=== PATIENT | male | born 1975 | race Caucasian/White ===

== ENCOUNTER → 2024-01-09 06:27 | Day surgery (SDC) | payer OTHER, SELFPAY | LOC: GI 06:27 | PROVIDERS: ATTENDING PHYSICIAN Internal Medicine | DX: D12.3 Benign neoplasm of transverse colon (principal); D12.5 Benign neoplasm of sigmoid colon; K63.89 Other specified diseases of intestine; K57.30 Diverticulosis of large intestine without perforation or abscess without bleeding; K64.8 Other hemorrhoids; R93.3 Abnormal findings on diagnostic imaging of other parts of digestive tract | CPT/HCPCS: 45380; 88305 ==

== ENCOUNTER 2024-01-10 16:37 | Emergency (ER) | payer OTHER, SELFPAY ==
[2024-01-10 16:54] VITALS: BP 131/86
[2024-01-10 17:14] LABS: COVID-19 Antigen Positive (Negative)
[2024-01-10 18:18] VITALS: BMI 27.4
[2024-01-10 18:19] VITALS: BP 130/84
--- NOTE | 2024-01-10 18:23 | ED.GENMED ---
History of Present Illness
General
Chief Complaint: Fever
Source: patient
Time Seen by Provider: 01/10/24 18:03
Travel History
Have you had any contact with someone who has COVID-19?: No
Do you have any symptoms of coronavirus? Fever > 100 degrees, chills, cough, shortness of breath, sore throat, loss of taste or smell, muscle aches, or headache?: Yes
Symptoms:: see note
History of Present Illness
History of Present Illness:
48-year-old male presenting to the emergency department for evaluation of cough and fever that he states started yesterday, had a colonoscopy yesterday and due to the fever decided to come to the ER for further evaluation. Patient notes no GI
symptoms today although notes he has not had a bowel movement since the colonoscopy. He states the cough is nonproductive. He notes that he had the colonoscopy due to chronic GI symptoms. No clear etiology at this time. Patient did not take
anything for symptoms prior to arrival.
Past History
Past History
ED Past Medical History: Cancer (Skin cancer) and Other (BPH, kidney stones)
ED Past Surgical History: Appendectomy and Other (Laser lithotripsy)
Social History
Tobacco: Non-smoker
Alcohol: Daily (Has not had a drink in 1 month but does note drinking 1-2 alcoholic beverages daily)
Drug: None
Personal:
Living: with family
Review of Systems
Review of Systems
All Other Systems: ROS reviewed and negative except as documented in HPI and ROS
Phy Exam
Physical Exam
Physical Exam:
GENERAL: Alert , in no apparent distress
EYE: conjunctiva clear
NECK: Supple, no significant adenopathy.
ENT: o/p clr, mmm.
CARDIAC: Regular rate and rhythm
LUNGS: Clear breath sounds bilaterally, no acute respiratory distress, no wheezes/rales/rhonchi
Abdomen: Soft, nontender, nondistended
NEUROLOGICAL: Alert and oriented
SKIN: Warm and dry, skin intact.
MUSCULOSKELETAL: well perfused.
PSYCH: Normal and appropriate interaction.
Scores
Heart Failure Risk
Heart Failure Risk Score: Not Applicable
Heart Score for Chest Pain Patients
STEMI patient?: Not applicable
Withdrawal Assessment of Alcohol
Withdrawal Assessment Completed?: Not applicable
Course
Orders/Labs/Results
Orders:
Orders
01/10/24 17:04
COVID-19 Antigen Urgent
Source: Nasal Swab
Influenza A+B Rapid Molecular Urgent
ELFEGO Source: Nasal Swab
Specimen Description:
Abnormal Lab Results
01/10/24
17:04
SARS-CoV-2 Antigen Positive A
(Negative)
Vital Signs
Initial and Last Documented VS:
Initial Vital Signs
Temp Pulse Resp BP Pulse Ox
100.5 F H 104 20 131/86 95
01/10/24 16:54 01/10/24 16:54 01/10/24 16:54 01/10/24 16:54 01/10/24 16:54
Last Documented Vital Signs
Temp Pulse Resp BP Pulse Ox
100.5 F H 89 16 130/84 96
01/10/24 16:54 01/10/24 18:19 01/10/24 18:19 01/10/24 18:19 01/10/24 18:19
MDM/Problems Addressed
Differential Diagnosis Includes:
COVID, flu, other viral etiology, postprocedural complication
MDM/Problems Addressed:
48-year-old male present emergency department for evaluation of fever and cough that began yesterday, continued today, had colonoscopy yesterday. Abdomen is soft and reassuring so I am not as suspicious for a postprocedural complication. COVID and
flu testing was ordered in triage and COVID test was positive. I discussed risk versus benefit of oral antiviral medications with the patient and patient ultimately was not sure if he would take the medication but wanted the prescription just in
case. Advised the patient he would need to discontinue his Flomax if he decides to take the Paxlovid. He also would need to take this medication by Saturday given his symptoms started on . Patient aware of return precautions emergency
department. He is otherwise stable for discharge home.
Patient's colonoscopy findings from yesterday as below:
Findings:
�� � The perianal and digital rectal examinations were normal.
�� � Non-bleeding internal hemorrhoids were found during retroflexion. The
�� � hemorrhoids were medium-sized.
�� � Scattered small-mouthed diverticula were found in the sigmoid colon.
�� � Two semi-sessile polyps were found in the sigmoid colon and transverse
�� � colon. The polyps were small in size. These polyps were removed with a
�� � jumbo cold forceps. Resection and retrieval were complete. Estimated
�� � blood loss was minimal.
�� � A diffuse area of granular mucosa was found in the entire colon.
�� � Biopsies for histology were taken with a cold forceps from the entire
�� � colon for evaluation of microscopic colitis. Estimated blood loss was
�� � minimal.
�� � The exam was otherwise normal throughout the examined colon.
�� � The terminal ileum appeared normal.
*Pulse Oximetry
Patient hypoxic: no
*Critical Care Note
Total Time (30-74mins, 75-104mins- exclusive of procedures): Not Applicable
Data Reviewed
Review of Other/Old Records Reveals: Testing
Source: patient and records
ED Attending Note
-
Portions of this chart may have been created with voice recognition software.� Occasional wrong word or��sound alike� substitutions may have occurred due to the inherent limitations of voice recognition software.
Discharge Plan
Departure
Patient Disposition: Home (Routine Discharge)
Date of Disposition: 01/10/24
Time of Disposition: 18:23
Patient with high blood pressure during this ER visit?: No
Discharge Problem:
COVID-19
Instructions: COVID-19 (DC)
Prescriptions:
New
Paxlovid 300 mg (150 mg x 2)-100 mg tablets,dose pack
See Rx Instructions .ROUTE .COMPLEX Qty: 30 0RF
Rx Instructions:
take TWO 150 mg tablets of nirmatrelvir with ONE 100 mg tablet of ritonavir twice daily for 5 days
No Action
tamsulosin 0.4 MG capsule
0.4 mg PO DAILY
escitalopram oxalate 5 MG tablet
5 mg PO DAILY
cholecalciferol (vitamin D3) 2,000 UNIT tablet
5,000 unit PO DAILY
Solisencin
10 mg PO DAILY
tramadol [Ultram] 50 MG tablet
50 mg PO Q8 PRN (Reason: pain) Qty: 30 0RF
Activity Restrictions/Additional Instructions:
If you decide to take the Paxlovid make sure you discontinue your use of Flomax for the duration of time taking the Paxlovid. You also must initiate the Paxlovid by Saturday if you decide to start the medication.
Interventions
Interventions:
*Risk Screen - Suicide Last Done: 01/10/24 18:19
*General Assessment Last Done: 01/10/24 18:19
*Neglect/Abuse Screening Last Done: 01/10/24 18:19
ED- Fall Risk Assessment Last Done: 01/10/24 18:19
*ED COVID-19 Vaccine History Last Done: 01/10/24 18:19
ED- Neurological Assessment Last Done: 01/10/24 18:19
ED-Skin Assessment Last Done: 01/10/24 18:19
== END 2024-01-10 18:36 | disposition home or self-care (01) ==
LOC: EMR 16:37
PROVIDERS: Emergency Medicine; EMERGENCY PHYSICIAN Emergency Medicine; FAMILY PHYSICIAN Internal Medicine
DX: U07.1 COVID-19 (principal); Z11.52 Encounter for screening for COVID-19; N40.0 Benign prostatic hyperplasia without lower urinary tract symptoms; K57.30 Diverticulosis of large intestine without perforation or abscess without bleeding; K64.8 Other hemorrhoids; Z98.890 Other specified postprocedural states; Z85.828 Personal history of other malignant neoplasm of skin; Z86.010 Personal history of colon polyps; Z87.442 Personal history of urinary calculi
CPT/HCPCS: 99283; 87502; 87811

== ENCOUNTER → 2024-07-07 09:03 | Outpatient (REF) | payer OTHER, SELFPAY | LOC: MRI 3T 09:03 | PROVIDERS: ATTENDING PHYSICIAN Internal Medicine | DX: R93.89 Abnormal findings on diagnostic imaging of other specified body structures (principal) | CPT/HCPCS: 72197; 74183; A9575 ==

== ENCOUNTER → 2024-08-05 09:09 | Outpatient (REF) | payer OTHER, SELFPAY | LOC: HWRAD 09:09 | PROVIDERS: ATTENDING PHYSICIAN Internal Medicine; FAMILY PHYSICIAN Internal Medicine | DX: T18.9XXA Foreign body of alimentary tract, part unspecified, initial encounter (principal) | CPT/HCPCS: 74019 ==

== ENCOUNTER 2024-10-15 12:52 | Observation (INO) | payer OTHER, SELFPAY ==
[2024-10-15] VITALS (14 sets, daily range): BP systolic 73–141; BP diastolic 65–88; BMI 27.1; BMI 26.9
--- NOTE | 2024-10-15 09:32 | ED.GENMED ---
History of Present Illness
<Marychuy Zhang PA-C - Last Filed: 10/15/24 18:36>
General
Chief Complaint: Numbness
Source: patient
Exam Limitations: none
Time Seen by Provider: 10/15/24 09:14
Nursing documentation reviewed up to this point in time: agreed with
History of Present Illness
History of Present Illness:
49-year-old male presents emergency department today with generalized neuropathy for the past 2 weeks. He states that he first started noticing that his legs felt fatigued and heavier. Then he started to get numbness and tingling in his bilateral
lower extremities. This sensation is gotten more intense over the past 2 weeks and will be associated occasionally with burning pain and now is present in the thighs as well. Patient states that this morning when he woke up, he noticed he felt a
similar sensation in both his lower extremities. Patient denies any difficulty ambulating. Patient denies any fevers or chills. Patient states he has low back pain on and off but has none currently, denies any trauma to the area, denies any
saddle paresthesias or urinary or fecal incontinence. Of note, he did get his flu shot in September. He saw his primary care provider a week ago for the symptoms and lab work was done including Lyme titers and vitamin B12. This was normal. He has
a neurology appointment scheduled but this is not until December 14 of next year.
Past History
<Marychuy Zhang PA-C - Last Filed: 10/15/24 18:36>
Past History
ED Past Medical History: Cancer (Skin cancer) and Other (BPH, kidney stones)
ED Past Surgical History: Appendectomy and Other (Laser lithotripsy)
Social History
Tobacco: Non-smoker
Alcohol: Daily (Has not had a drink in 1 month but does note drinking 1-2 alcoholic beverages daily)
Drug: None
Personal:
Living: with family
Review of Systems
<Marychuy Zhang PA-C - Last Filed: 10/15/24 18:36>
Review of Systems
All Other Systems: ROS reviewed and negative except as documented in HPI and ROS
Phy Exam
<Marychuy Zhang PA-C - Last Filed: 10/15/24 18:36>
Physical Exam
Physical Exam:
General: Patient is well appearing and in no acute distress; non-toxic
Skin: Warm and dry, no rashes or lesions
Head: Normocephalic, atraumatic
Eyes: Sclera non-icteric. EOMs intact. PERRLA.
Cardiac: Regular rate and rhythm, no murmurs
Peripheral Vascular: No lower extremity swelling or edema
Pulm: Normal respiratory effort, no wheezes, rales, rhonchi. Airway intact.
Musculoskeletal: No bony tenderness to palpation of bilateral lower extremities. Full ROM of bilateral lower extremities. Normal gait.
Neuro: CN II-XII intact, no focal neurologic deficits. Brisk DTR bilateral lower extremities.
Psychiatric: Appropriate mood and affect.
Course
<Marychuy Zhang PA-C - Last Filed: 10/15/24 18:36>
Orders/Labs/Results
Orders:
Orders
10/15/24 Breakfast
Regular
At Your Request: Full Participation
10/15/24 10:59
CRP [C-Reactive Protein] Urgent
Complete Blood Count/With Diff Urgent
Comprehensive Metabolic Panel Urgent
ESR [Erythrocyte Sed Rate] Urgent
Folate Urgent
Magnesium Urgent
TSH Reflex To Free T4 Urgent
Vitamin B12 Urgent
10/15/24 12:24
Admit/Transfer Patient As Directed
Co-Sign Provider:
Level of Care: Observation services
Assign to:: Medical/Surgical
Physician / Group: mary
Diagnosis: neuropathy
Code Status As Directed
Resuscitation Status: Full Code
PRN Pain Medication Management As Directed
May give lesser potent ordered pain med per pt: Yes
preference::
Protocol:: Medication orders for pain may be administered in a
manner that supports deferring to patient preference
when the pt is:
- Requesting an ordered lesser potent pain medication.
Least to most potent pain medications are defined
as: acetaminophen < NSAID < tramadol < opioids
(morphine, oxycodone, hydromorphone).
- Requesting a lesser dose of the same medication IF
ORDERED.
- Requesting a less intrusive route of administration
if both routes are prescribed by the provider (PO <
IV).
10/15/24 12:37
MR Cervical Spine Without & W Routine
Comment:
Reason For Exam: numbness and tingling
Recent pill cam endoscopy?: No
MRI Brain [MR Brain W/o & With Contrast] Routine
Comment:
Reason For Exam: numbness/tingling
Recent pill cam endoscopy?: No
10/15/24 13:58
Acetaminophen [Tylenol] 650 mg PO Q4HPRN PRN
Bisacodyl [Dulcolax] 10 mg RECTAL [id number] PRN
Docusate W/Senna [Senokot-S] 1 tablet PO BIDPRN PRN
Polyethylene Glycol Powder [Miralax] 17 grams PO DAILYPRN PRN
10/15/24 13:58
NEUROLOGY CONSULT Routine
Consulting Provider: Israel Rodrigez
Was physician already notified: Yes
Activity As Directed
Activity Level: As Tolerated
Vital Signs As Directed
Frequency: Per unit guidelines
DX Deep Vein Thrombosis Video Routine
10/15/24 18:00
Enoxaparin Sodium [Lovenox] 40 mg SC QPM
10/15/24 22:00
Diphenhydramine [Benadryl] 25 mg PO HS
Melatonin 10 mg PO HS
Tolterodine Extended Release [Detrol LA] 4 mg PO HS
Abnormal Lab Results
10/15/24
10:59
MCH 33.0 H pg
(27.0-31.0)
Monocytes % 9.9 H %
(1.7-9.3)
BUN 24 H mg/dl
(9-20)
Glucose 102 H mg/dl
(70-99)
10/15/24 10:59
10/15/24 10:59
Vital Signs
Initial and Last Documented VS:
Initial Vital Signs
Temp Pulse Resp BP Pulse Ox
98.7 F 79 16 141/88 98
10/15/24 08:50 10/15/24 08:50 10/15/24 08:50 10/15/24 08:50 10/15/24 08:50
Last Documented Vital Signs
Temp Pulse Resp BP Pulse Ox
98.2 F 70 18 129/76 96
10/15/24 17:47 10/15/24 17:47 10/15/24 17:47 10/15/24 17:47 10/15/24 17:47
<Mitchell Thomas MD - Last Filed: 10/15/24 18:34>
Orders/Labs/Results
Orders:
Orders
10/15/24 Breakfast
Regular
At Your Request: Full Participation
10/15/24 10:59
CRP [C-Reactive Protein] Urgent
Complete Blood Count/With Diff Urgent
Comprehensive Metabolic Panel Urgent
ESR [Erythrocyte Sed Rate] Urgent
Folate Urgent
Magnesium Urgent
TSH Reflex To Free T4 Urgent
Vitamin B12 Urgent
10/15/24 12:24
Admit/Transfer Patient As Directed
Co-Sign Provider:
Level of Care: Observation services
Assign to:: Medical/Surgical
Physician / Group: veldanda
Diagnosis: neuropathy
Code Status As Directed
Resuscitation Status: Full Code
PRN Pain Medication Management As Directed
May give lesser potent ordered pain med per pt: Yes
preference::
Protocol:: Medication orders for pain may be administered in a
manner that supports deferring to patient preference
when the pt is:
- Requesting an ordered lesser potent pain medication.
Least to most potent pain medications are defined
as: acetaminophen < NSAID < tramadol < opioids
(morphine, oxycodone, hydromorphone).
- Requesting a lesser dose of the same medication IF
ORDERED.
- Requesting a less intrusive route of administration
if both routes are prescribed by the provider (PO <
IV).
10/15/24 12:37
MR Cervical Spine Without & W Routine
Comment:
Reason For Exam: numbness and tingling
Recent pill cam endoscopy?: No
MRI Brain [MR Brain W/o & With Contrast] Routine
Comment:
Reason For Exam: numbness/tingling
Recent pill cam endoscopy?: No
10/15/24 13:58
Acetaminophen [Tylenol] 650 mg PO Q4HPRN PRN
Bisacodyl [Dulcolax] 10 mg RECTAL [id number] PRN
Docusate W/Senna [Senokot-S] 1 tablet PO BIDPRN PRN
Polyethylene Glycol Powder [Miralax] 17 grams PO DAILYPRN PRN
10/15/24 13:58
NEUROLOGY CONSULT Routine
Consulting Provider: Israel Rodrigez
Was physician already notified: Yes
Activity As Directed
Activity Level: As Tolerated
Vital Signs As Directed
Frequency: Per unit guidelines
DX Deep Vein Thrombosis Video Routine
10/15/24 18:00
Enoxaparin Sodium [Lovenox] 40 mg SC QPM
10/15/24 22:00
Diphenhydramine [Benadryl] 25 mg PO HS
Melatonin 10 mg PO HS
Tolterodine Extended Release [Detrol LA] 4 mg PO HS
Abnormal Lab Results
10/15/24
10:59
MCH 33.0 H pg
(27.0-31.0)
Monocytes % 9.9 H %
(1.7-9.3)
BUN 24 H mg/dl
(9-20)
Glucose 102 H mg/dl
(70-99)
10/15/24 10:59
10/15/24 10:59
Vital Signs
Initial and Last Documented VS:
Initial Vital Signs
Temp Pulse Resp BP Pulse Ox
98.7 F 79 16 141/88 98
10/15/24 08:50 10/15/24 08:50 10/15/24 08:50 10/15/24 08:50 10/15/24 08:50
Last Documented Vital Signs
Temp Pulse Resp BP Pulse Ox
98.2 F 70 18 129/76 96
10/15/24 17:47 10/15/24 17:47 10/15/24 17:47 10/15/24 17:47 10/15/24 17:47
<Marychuy Zhang PA-C - Last Filed: 10/15/24 18:36>
MDM/Problems Addressed
Differential Diagnosis Includes:
ddx include diabetic neuropathy, B12 deficiency, folate deficiency, tick borne illness, cauda equina syndrome
MDM/Problems Addressed:
49-year-old male presents emergency department today with generalized neuropathy for the past 2 weeks. It started in his legs but today progressed to his bilateral upper extremities and an episode of dysphagia. He gets intermittent low back pain.
Discussed case in consult with neurology, admission recommended for further workup of symptoms, transverse myelitis vs GBS vs MS. Patient in agreement with plan all questions answered.
<Marychuy Zhang PA-C - Last Filed: 10/15/24 18:36>
*Pulse Oximetry
Patient hypoxic: no
*Critical Care Note
Total Time (30-74mins, 75-104mins- exclusive of procedures): Not Applicable
Data Reviewed
Review of Other/Old Records Reveals: Records (reviewed ER physician documentation from 01/10/24)
Source: patient and records
<Marychuy Zhang PA-C - Last Filed: 10/15/24 18:36>
Patient Management
Discussion with other providers: Adult Education Teacher (Dr. Rodrigez)
ED Attending Note
<Marychuy Zhang PA-C - Last Filed: 10/15/24 18:36>
-
Portions of this chart may have been created with voice recognition software.� Occasional wrong word or��sound alike� substitutions may have occurred due to the inherent limitations of voice recognition software.
<Mitchell Thomas MD - Last Filed: 10/15/24 18:34>
ED Attending Note
I performed the substantive portion of visit, reviewed & personally made and approve the management plan that is documented in note by myself or JB.: Yes
ED Attending Note:
Patient presents to ED secondary to intermittent numbness sensation in his legs over the past 2 weeks, which now has progressed to upper arm numbness sensation along with difficulty swallowing, noted at this morning. Denies headache. Denies
dizziness. Denies weakness. Denies back pain. Denies recent illness. Denies recent change in medications or diet. Denies previous history of similar symptoms. Patient has been evaluated by his primary care physician and appointment has been
made for an outpatient consultation with neurology in December 2024.
Patient evaluated in ED by Dr. Rodrigez, neurology. History and exam concerning for potential diagnosis, including transverse myelitis, Guillain-Lorenzo� syndrome, and other etiology. As such, decision made to admit the patient for further evaluation
and treatment, including MRI brain and MRI C-spine, along with likely lumbar puncture.
Discharge Plan
Departure
Patient Disposition: Admit
Date of Disposition: 10/15/24
Time of Disposition: 12:01
Admit to: Med/Surg
Presentation/result/management discussed w/ accepting MD/DO: Hospitalist
Patient with high blood pressure during this ER visit?: Yes
Condition: Fair
Discharge Problem:
Peripheral neuropathy, Dysphagia
Interventions
Interventions:
*Risk Screen - Suicide Last Done: 10/15/24 08:50
*General Assessment Last Done: 10/15/24 11:03
*Neglect/Abuse Screening Last Done: 10/15/24 08:50
ED- Fall Risk Assessment Last Done: 10/15/24 11:04
*ED COVID-19 Vaccine History Last Done: 10/15/24 11:02
*Nursing Disposition Last Done: 10/15/24 13:56
ED- Neurological Assessment Last Done: 10/15/24 10:02
Discharge Date and Time
Discharge Date/Time: 10/15/24 13:56
--- NOTE | 2024-10-15 11:03 | CON.NEURO4 ---
Addendum entered and electronically signed by Israel Rodrigez MD 10/15/24 15:59:
Studies reviewed.
I have personally examined the patient. I reviewed and agree with the WHITE WASHER's Note.
My addenda:
Awake, alert, interactive. No acute distress.
Speech intact.
Follows 2-step requests w/o difficulty. No tremor.
Extra-ocular movements grossly intact.
Facial movements full and symmetric. Hearing intact to normal conversational volume.
Normal UE movements bilaterally.
Neck: full ROM.
Chest: no dyspnea
Heart: no JVD
Ext: (-) Clubbing, (-) Cyanosis, (-) Edema
IMPRESSIONS/RECOMMENDATIONS:
Abrupt onset of bilateral lower extremity skin sensation change subsequently involving bilateral upper extremities (left, then right), followed by dysphagia beginning today
Differential diagnosis including the patient's spared reflexes, involves transverse myelitis or Guillain-Lorenzo� syndrome (axonal type)
Check MRI of head and cervical spine with and without contrast
Check EMG
Check lumbar puncture for cytoalbumin disassociation and for inflammatory changes
Consider initiation of methylprednisolone 1 g IV based on future results
Speech therapy evaluation for swallowing difficulties
D/W patient / family
All questions answered.
Will continue to follow patient.
Original Note:
Consultation - Neurology 4
-
CONSULTING PHYSICIAN: Israel Rodrigez MD
REFERRING PHYSICIAN: ER/Marychuy Zhang PA-C
DICTATED BY: DANGELO Mcdonnell
DATE/TIME OF REQUEST: 10/15/24
DATE/TIME OF CONSULTATION: 10/15/24
Reason for Consultation: Paresthesias
History of Present Illness:
This is a 49-year-old right-handed male who has presented to the hospital with report of paresthesias, weakness, and swallowing difficulty. Patient reports receiving a flu vaccine about 3 weeks ago. About two weeks ago, he reports noticing that his
legs felt 'heavy' and he began to have intermittent tingling, burning, cramping from his waist down his posterior thighs, to bilateral ankles. Two days ago, his left arm started having a tingling sensation and then today (10/15/24), his right arm
started tingling. This morning, he note that swallowing felt difficult with breakfast. He denies any arm weakness but does note bilateral leg weakness, no difficulty walking or falls. He reports mild lower back pain at the base of his spine. He also
has a mild headache starting this morning. He notes very poor sleep for the past three years, which has improved somewhat since his septoplasty that he had done for sleep apnea. He denies migraine headaches but would have headaches from time to time
associated with poor sleep. He denies any vision changes, dizziness, speech difficulty, bowel/bladder changes, chest pain, palpitations, and shortness of breath. He has been undergoing a GI workup for IBS symptoms and as told he had an area of
inflammation in his small bowel. He is also taking Gemtesa for urinary difficulty. He was evaluated at his PCP about a week ago and had negative Lyme and B12 testing.
Past Medical History: IBS, MIKIE, renal calculi, neuropathy, skin cancer, BPH
Surgical History: lithotripsy w/ stent, septoplasty, appendectomy
Family History: Reviewed and noncontributory.
Social History: Denies tobacco and illicit drug use. Alcohol 1-2 drinks daily, has not had a drink in about a month.
Allergies: No known allergies.
Home Medications: See below.
Review of Symptoms:
Patient denies any fever, chest pain, shortness of breath, GI or symptoms.
�Per the HPI.�All systems are reviewed negative except above.
Physical Exam:
The patient is afebrile, abdomen is nondistended, breathing is unlabored, skin is warm and dry, no edema.
Neurologic Examination:
The patient is awake, alert and oriented x 3. He is able to follow commands and answer questions appropriately. There is no aphasia or dysarthria. On cranial nerve assessment, pupils are 3 mm bilateral, round and reactive to light and
accommodation. Visual weber are full. Extraocular movements are intact. Facial sensations are intact and bilaterally symmetrical, there is no facial asymmetry. Hearing is intact bilaterally to normal conversation volume. Tongue palate and uvula are
midline. Sternocleidomastoid strengths are full bilaterally. Motor strengths are 5/5 bilateral upper and lower extremities on medical research [place] scale. There is no drift or involuntary movement noted. Deep tendon reflexes are 2+ bilateral
upper and lower extremities, one beat of clonus in the LLE and Babinski is absent bilaterally. Sensations of temperature is mildly reduced in bilateral lower extremities. Sensation of pain is severely reduced in bilateral feet, mildly decreased in
distal bilateral lower extremities and upper extremities L>R. Intermittent proximal BLE fasciculations. There was no extinction noted on double simultaneous stimulation. Coordination is intact by finger to nose bilaterally.
Lab Results: See below.
Neuro Imaging: None.
Differentials for the patient's presentation include:
1. Concern for spinal cord abnormality producing symptoms.
2. GBS with intact reflexes possible but uncommon.
3. Chemical imbalance possibly producing symptoms.
Patient has the following risk factors for their symptoms: Flu vaccine one month ago
Recommendations:
-MRI brain w/ and w/o contrast pending.
-MRI cervical spine w and w/o contrast pending.
-IRAD consult/lumbar puncture pending.
-If testing is inconclusive/unremarkable, will need EMG.
-PT/OT/ST evaluations.
-DVT prophylaxis.
Discussed patient care with: Dr. Rodrigez, the patient
Vital Signs and Labs
-
Vital Signs and Labs:
Vital Signs
Temp Pulse Resp BP Pulse Ox
98.7 F 74 12 119/80 96
10/15/24 08:50 10/15/24 12:30 10/15/24 12:30 10/15/24 12:00 10/15/24 12:30
Lab Results
10/15/24 10:59
10/15/24 10:59
Sodium 141 mmol/L (135-145) 10/15/24 10:59
Potassium 5.1 mmol/L (3.5-5.1) 10/15/24 10:59
BUN 24 mg/dl (9-20) H 10/15/24 10:59
Glucose 102 mg/dl (70-99) H 10/15/24 10:59
Calcium 9.7 mg/dl (8.4-10.2) 10/15/24 10:59
Vitamin B12 559 pg/ml (239-931) 10/15/24 10:59
Medications
-
Home Medications
�Medication �Instructions �Recorded
diphenhydramine HCl 25 mg tablet 25 mg PO HS Sleep 10/15/24
melatonin 10 mg tablet,extended 10 mg PO HS Sleep 10/15/24
release
vibegron 75 mg tablet (Gemtesa) 75 mg PO HS Urinary Issue 10/15/24
[2024-10-15 11:06] LABS: % Basophils 0.4 % (0-2); % Eosinophils 0.9 % (0-6); % Immature Granulocytes 0.2 % (0-0.5); % Lymphocytes 29.1 % (20.5-51.1); % Monocytes 9.9 % (1.7-9.3); % Neutrophils 59.5 % (42.2-75.2); Absolute Eosinophils 0.1 10^3/uL (0-0.7); Absolute Lymphocytes 1.6 10^3/uL (1.2-3.4); Absolute Monocytes 0.5 10^3/uL (0.1-0.6); Absolute Neutrophils 3.2 10^3/uL (1.4-6.5); Hematocrit 45.2 % (39.0-52.0); Hemoglobin 15.9 g/dL (13.0-18.0); Mean Corp Hgb Conc. 35.2 g/dL (33.0-37.0); Mean Corpuscular Volume 93.8 fL (80.0-94.0); Mean Platelet Volume 9.8 fL (7.4-10.4); Nucleated Red Blood Cells % 0 % (-); Platelet Count 196 10^3/uL (130-400); Red Blood Cell Count 4.82 10^6/uL (4.70-6.10); Red Cell Dist. Width 11.8 % (11.5-14.5); White Blood Cell Count 5.4 10^3/uL (4.8-10.8)
[2024-10-15 11:18] LABS: Erythrocyte Sed Rate 7 mm/hour (0-20)
[2024-10-15 11:27] LABS: ALT (SGPT) 32 U/L (0-50); AST (SGOT) 27 U/L (17-59); Albumin 4.7 g/dl (3.5-5.0); Alkaline Phosphatase 56 U/L (38-126); Blood Urea Nitrogen 24 mg/dl (9-20); Calcium 9.7 mg/dl (8.4-10.2); Carbon Dioxide 30 mmol/L (22-30); Chloride 103 mmol/L (98-107); Estimated Creatinine Clearance 83 ml/min; Glucose 102 mg/dl (70-99); Potassium 5.1 mmol/L (3.5-5.1); Sodium 141 mmol/L (135-145); Total Bilirubin 1.3 mg/dl (0.2-1.3); Total Protein 7.6 g/dl (6.3-8.2); eGFR > 60.00
[2024-10-15 11:30] LABS: C-Reactive Protein < 5.00 mg/L (0.0-10.00)
[2024-10-15 12:01] LABS: TSH Reflex To Free T4 1.48 uIU/ml (0.47-4.68)
--- NOTE | 2024-10-15 12:05 | HPS.HSE ---
Family Physician
-
Family Physician: Mariangel Smith MD
Chief Complaint
-
numbness
History of Present Illness
49-year-old male presents emergency department today with generalized neuropathy for the past 3 weeks. He states that he first started noticed numbness and tingling on his bilateral legs. for past few days, he noticed on his arms. today he was
having trouble swallowing. patient also complained of burning pain and cramps on his legs. Patient denies any difficulty swallowing Patient denies any fevers or chills.denied any incontinence of bowel and bladder. denied abdominal pain,n,v.
denied dysuria or hematuria. denied chest pain, sob. denied fever, chills.
admitting for further management.
Medical History
Past Medical History
Past Medical History: Reports Other
Additional Past Medical History:
colonic polyps
IBS
constipation
Past Surgical History: Reports Other
Additional Past Surgical History:
lithotripsy
septoplasty
Social History
Tobacco: Smoker (occasional )
Alcohol: Occasional
Drug: None
Personal:
Living: With Family
Employment: Employed
Family History
Family History: Not pertinent
Allergies / Home Medications
Allergies reflects when Allergies were last updated in [facility].
Home Medications with original date entered in [facility]
Allergy/Medication List:
Allergies
Allergy/AdvReac Type Severity Reaction Status Date / Time
No Known Allergies Allergy Verified 10/15/24 08:54
Home Medications
Solisencin 10 mg PO DAILY 03/19/22
cholecalciferol (vitamin D3) 50 mcg (2,000 unit) tablet 5,000 unit PO DAILY 03/19/22
escitalopram oxalate 5 mg tablet 5 mg PO DAILY 03/19/22
tamsulosin 0.4 mg capsule 0.4 mg PO DAILY 03/19/22
tramadol 50 mg tablet (Ultram) 50 mg PO Q8 PRN pain #30 tabs 03/23/22
nirmatrelvir 300 mg (150 mg x2)-ritonavir 100 mg tablet,dose pack (Paxlovid) See Rx Instructions PO .COMPLEX #30 ea 01/10/24
Review of Systems
-
Constitutional: Reports No Symptoms
EENT: Reports No Symptoms
Respiratory: Reports No Symptoms
Cardiac: Reports No Symptoms
Abdomen/GI: Reports No Symptoms
: Reports No Symptoms
Musculoskeletal: Reports No Symptoms
Skin: Reports No Symptoms
Neurological: Reports Numbness
Endocrine: Reports No Symptoms
Hematologic/Lymphatic: Reports No Symptoms
Psych: Reports No Symptoms
Physical Exam
Vital Signs
Vital Signs
Temp Pulse Resp BP Pulse Ox
98.7 F 73 20 115/80 95
10/15/24 08:50 10/15/24 11:45 10/15/24 11:45 10/15/24 11:01 10/15/24 11:45
Physical Exam
General: Well Developed, Well Nourished and No Apparent Distress
HEENT: NormoCephalic, Moist mucous membranes and Atraumatic
Respiratory: Clear
Cardiac: S1/S2 and Regular Rhythm; No Murmur or Rub
GI: Soft, Non Tender, Non Distended and Normal Bowel Sounds; No Organomegaly
Rectal: Deferred by Provider
Musculoskeletal: No Clubbing, No Cyanosis and No Edema
Skin: Rash (rash noted on his left foot)
Neuro: AO x 3 and Nonfocal/grossly intact
Psych: Calm
Laboratory Results
-
10/15/24 10:59
10/15/24 10:59
Laboratory Results
Total Bilirubin 1.3 mg/dl (0.2-1.3) 10/15/24 10:59
AST 27 U/L (17-59) 10/15/24 10:59
ALT 32 U/L (0-50) 10/15/24 10:59
Alkaline Phosphatase 56 U/L (38-126) 10/15/24 10:59
Data Reviewed
-
Lab Data: Labs Reviewed by me
Impression/Plan
-
#ascending peripheral neuropathy/trouble swallowing R/o MS VS GBS VS transverse myelitis
-obtain MRI of the brain and C spine
-neurology following
#dorsum foot rash
-obtaining HIV and syphilis
# hxt of IBS
#BPH
-Gemtesa
#insomnia
-Benadryl and melatonin for sleep
#DVT prophylaxis
-Lovenox sq
#CODE status
-full code
[2024-10-15 12:37] LABS: Folate 10.1 ng/ml (2.76-20); Vitamin B12 559 pg/ml (239-931)
--- NOTE | 2024-10-15 12:59 | W.PN.UPDATE ---
Update Note
Progress Note Update
This is an addendum to the H&P written by Chaparrita Ramachandran on 10/15/2024. Patient seen and examined independently with [facility].
49-year-old male past medical history of BPH, nephrolithiasis, skin cancer, presenting with worsening bilateral lower extremity ascending neuropathic pain with involvement of bilateral upper extremities and difficulty swallowing. Strength is
preserved bilaterally. Brisk bilateral lower extremity reflexes on examination.
On examination he also has a faint lacy maculopapular rash on the dorsum of the left foot which has improved since earlier today.
Patient has been having bouts of abdominal pain with constipation for the past year and was found to have inflammation of the small intestines on abdominal imaging. He subsequently had endoscopy/colonoscopy which was unremarkable and was told by
his GI doctor that he could have mild Crohn's disease but no further management was recommended.
No family history of neurological/autoimmune disorders.
Concern for multiple sclerosis versus transverse myelitis versus Guillain-Lorenzo�. B12 and folate pending. CRP and TSH unremarkable. Check MRI brain and cervical spine with/without contrast and potentially lumbar puncture. Neurology following.
Check HIV, syphilis antibody.
--- NOTE | 2024-10-15 14:00 | PTCARENOTE ---
Received pt from ED via wheelchair. Pt ambulated to bed independently. AAOX3. No complaints of pain. Assessed and oriented to room. Pt verbalized understanding of call degroot. Call degroot within close reach. Will continue to monitor.
[2024-10-15 16:31] LABS: INR 1.08; PT 14.5 Sec (11.4-14.6)
--- NOTE | 2024-10-15 17:47 | PTCARENOTE ---
Received pt from IR via stretcher. Stretcher placed next to bed, pt scooted over to bed independently. VSS. No complaints of pain. Back assessed, small band aide on lower middle back observed, CDI.
[2024-10-15] MEDS: LOVENOX 40 MG SC (17:50)
[2024-10-15 19:28] LABS: Spinal Fluid Glucose 64 mg/dl (40-70); Spinal Fluid Protein 58 mg/dl (12-60)
[2024-10-15 20:14] LABS: CSF Color Colorless; CSF Tube # 4; CSF Tube # Clarity Clear; Red Cell Count/CSF 1 mm^3; White Blood Cell Count/CSF 0 mm^3 (0-5)
[2024-10-15 20:29] LABS: CSF Clarity Clear; CSF Color Colorless; CSF Tube # 1; Red Cell Count/CSF 109 mm^3; White Cell Count/CSF 0 mm^3 (0-5)
[2024-10-15] MEDS: MELATONIN 10 MG PO (21:26)
[2024-10-15] MEDS: TYLENOL 650 MG PO (21:26)
[2024-10-15] MEDS: SENOKOT-S 1 TABLET PO (21:27)
[2024-10-15] MEDS: BENADRYL 25 MG PO (21:27)
[2024-10-15] MEDS: DETROL LA 4 MG PO (21:30)
[2024-10-16 03:15] VITALS: BP 107/60
[2024-10-16 07:41] VITALS: BP 104/56
--- NOTE | 2024-10-16 10:40 | W.PN.NEURO.1 ---
Today's Communication / Plan
-
Await MRI of brain and cervical spine
Check EMG study of at least 2 limbs to determine if changes suggestive of neuromuscular blockade
Continue rehabilitation evaluations
Neuro Assessment/Plan
Assessment
Abrupt onset of bilateral lower extremity skin sensation change subsequently involving bilateral upper extremities (left, then right), followed by dysphagia beginning today
Differential diagnosis based on the patient's spared reflexes, involves transverse myelitis or Guillain-Lorenzo� syndrome (axonal type).
Much less likely to be due to GBS due to lumbar puncture results unremarkable
Plan
Await MRI of brain and cervical spine
Check EMG study of at least 2 limbs to determine if changes suggestive of neuromuscular blockade
Continue rehabilitation evaluations
Will follow pending results
Subjective/Objective
Subjective Data
Date of Service: October 16, 2024
Minimal cramping, continued numbness
Objective Data
Vital Signs
Temp Pulse Resp BP Pulse Ox
36.9 C 64 16 104/56 98
10/16/24 07:41 10/16/24 07:41 10/16/24 07:41 10/16/24 07:41 10/16/24 07:41
Lab Results
10/15/24 10:59
10/15/24 10:59
PT 14.5 Sec (11.4-14.6) 10/15/24 15:59
INR 1.08 10/15/24 15:59
Sodium 141 mmol/L (135-145) 10/15/24 10:59
Potassium 5.1 mmol/L (3.5-5.1) 10/15/24 10:59
BUN 24 mg/dl (9-20) H 10/15/24 10:59
Glucose 102 mg/dl (70-99) H 10/15/24 10:59
Calcium 9.7 mg/dl (8.4-10.2) 10/15/24 10:59
Vitamin B12 559 pg/ml (310-641) 10/15/24 10:59
Patient Allergies
No Known Allergies Allergy (Verified 10/15/24 08:54)
Review of Systems
-
History Source: Patient
All other systems: Reviewed and negative
EENT: Swallowing Difficulty; Negative Decreased Vision
Respiratory: Negative Trouble Breathing
Abdomen/GI: Negative Incontinence of Stool
Genitourinary: Negative Incontinence
Musculoskeletal: Negative Back Pain or Neck Pain
Neuro: Numbness (left face); Negative Dizzy or Headache
Physical Exam
-
General: No Apparent Distress and Appears Stated Age
Eyes: Round OU, [place] Conjunctivae and No Ptosis
HEENT: Anicteric and Moist Mucous Membranes
Neck: Full Range of Motion
Respiratory: No Dyspnea
Cardiac: No JVD
GI: Non-distended
Skin: Unremarkable
Extremities: No Clubbing, No Cyanosis and No Edema
Psych: Intact Judgement/Insight
Extended Neurological Exam
Mood & Affect: Mood Unremarkable and Affect Unremarkable
Attention Span & Concentration: Awake, Alert, Interactive and No Difficulty with 2 Step Request
Memory: Unremarkable
Tremor: Hand Tremor Absent and Head Tremor Absent
Speech: Quality Unremarkable and Quantity Unremarkable
Cranial Nerve II: Left Eye: Pupillary Size Unremarkable and Visual Wells Grossly Intact
Cranial Nerve II: Right Eye: Pupillary Size Unremarkable and Visual Wells Grossly Intact
Cranial Nerves III, IV, : Extraocular Movement: Grossly Intact
Cranial Nerve VII: Facial Symmetry: Normal Facial Symmetry
Cranial Nerve VIII: Hearing: Unremarkable Hearing to Normal Conversational Volume
Cranial Nerve XI: Shoulder Shrug: Unremarkable
Muscle Strength, Overall: Full Throughout
Muscle Bulk & Tone: Bulk Unremarkable and Tone Unremarkable
Pronator Drift: No Drift in Upper Extremities
Deep Tendon Reflexes: Unremarkable Throughout
Touch Sensation: Unremarkable
Coordination: Wqhqre-snjr-qfyorf Testing Unremarkable
Data Reviewed
-
MRI Head: Pending
MRI Cervical Spine: Pending
Labs: Pending and Report Reviewed
Reviewed with: Physician and Patient
Old Records: Summarized
Past History
Past History
ED Past Medical History: Cancer (Skin cancer) and Other (BPH, kidney stones, COVID-19)
ED Past Surgical History: Appendectomy and Other (Laser lithotripsy)
Social History
Tobacco: Non-smoker
Alcohol: Daily (Has not had a drink in 1 month but does note drinking 1-2 alcoholic beverages daily)
Drug: None
Personal:
Living: with family
Medications
-
Medications:
Generic Name Dose Route Start Last Admin
Trade Name Freq PRN Reason Stop Dose Admin
Acetaminophen 650 mg 10/15/24 13:58 10/15/24 21:26
Acetaminophen 325 Mg Tablet PO 11/12/24 13:57 650 mg
Q4HPRN PRN Administration
mild pain/GALICIA/temp> 100.4F
Bisacodyl 10 mg 10/15/24 13:58
Bisacodyl 10 Mg Rectal Suppository RECTAL 11/12/24 13:57
[id number] PRN
constipation
Diphenhydramine HCl 25 mg 10/15/24 22:00 10/15/24 21:27
Diphenhydramine 25 Mg Capsule PO 11/12/24 21:59 25 mg
HS GABE Administration
Enoxaparin Sodium 40 mg 10/15/24 18:00 10/15/24 17:50
Enoxaparin Sodium 40 Mg/0.4 Ml Syringe SC 11/12/24 17:59 40 mg
QPM GABE Administration
Melatonin 10 mg 10/15/24 22:00 10/15/24 21:26
Melatonin 5 Mg Tablet PO 11/12/24 21:59 10 mg
HS GABE Administration
Polyethylene Glycol 17 grams 10/15/24 13:58
Polyethylene Glycol Powder 17 Grams Packet PO 11/12/24 13:57
DAILYPRN PRN
constipation
Senna/Docusate Sodium 1 tablet 10/15/24 13:58 10/15/24 21:27
Docusate W/Senna (Erica-Colace) Tablet PO 11/12/24 13:57 1 tablet
BIDPRN PRN Administration
constipation
Tolterodine Tartrate 4 mg 10/15/24 22:00 10/15/24 21:30
Tolterodine 4 Mg Extended Release Capsule PO 11/12/24 21:59 4 mg
HS GABE Administration
--- NOTE | 2024-10-16 10:55 | W.PN.HOSP.TC ---
Today's Communication/Plan
-
awaiting MRI
F/U CSF studies
appreciate Neurology
Assessment / Plan
Assessment / Plan
#ascending peripheral neuropathy/trouble swallowing . concern for MS VS GBS VS transverse myelitis
-s/p LP which shows 0 WBC, nl protein - awaiting oligoclonal bands, VDRL
-TSH and B12 WNL
-F/U HIV testing
-obtain MRI of the brain and C spine
-neurology following
-may require EMG
# hxt of IBS
#BPH
-Gemtesa
#insomnia
-Benadryl and melatonin for sleep
#DVT prophylaxis
-Lovenox sq
#CODE status
-full code
Anticipated Discharge: 24 - 48 hours
Subjective/Interval History
-
Date of Service: October 16, 2024
no change in parasthesias or weakness
Objective Data
-
Vital Signs:
Vital Signs
Temp Pulse Resp BP Pulse Ox
98.4 F 64 16 104/56 98
10/16/24 07:41 10/16/24 07:41 10/16/24 07:41 10/16/24 07:41 10/16/24 07:41
I&O
10/15/24 10/16/24 10/17/24
06:59 06:59 06:59
Intake Total 960 / 960
Balance 960 / 960
Review of Systems
-
History Source: Patient
All other systems: Reviewed and negative
Physical Exam
-
General: No Apparent Distress
HEENT: PERRLA
Respiratory: Clear to Auscultation; Negative Wheezes
Cardiac: Regular Rhythm and S1/S2
GI: Soft, Nontender and Nondistended
Skin: Warm and Dry; Negative Rash
Neuro: AO x 3 and Other (5/5 strength upper and lower extremities )
Psych: Calm
Data Reviewed
-
Diagnostic Radiology: Report Reviewed by me
Labs: Labs Reviewed by me
[2024-10-16 11:51] LABS: Syphilis/T. pallidum Ab Reflex Negative (Negative)
[2024-10-16 14:19] VITALS: BP 130/81
[2024-10-16] MEDS: LOVENOX 40 MG SC (17:49)
--- NOTE | 2024-10-16 18:12 | PTCARENOTE ---
Addendum entered by Rebecca Mccabe RN 10/16/24 18:52:
*EMG not MRI
Original Note:
Pt notified care team of increased 'burning/tingling' now in L arm and L side of face/ear. MD made aware. No new orders at this time. Awaiting results of MRI for updated plan of care.
[2024-10-16] MEDS: MELATONIN 10 MG PO (21:12)
[2024-10-16] MEDS: DETROL LA 4 MG PO (21:12)
[2024-10-16] MEDS: BENADRYL 25 MG PO (21:12)
[2024-10-16 23:20] VITALS: BP 131/74
[2024-10-17 07:49] VITALS: BP 104/63
--- NOTE | 2024-10-17 08:42 | W.PN.NEURO.1 ---
Today's Communication / Plan
-
Check EMG study of at least 2 limbs to determine if changes suggestive of neuromuscular blockade
Continue rehabilitation evaluations
Neuro Assessment/Plan
Assessment
Abrupt onset of bilateral lower extremity skin sensation change subsequently involving bilateral upper extremities (left, then right), followed by dysphagia
Differential diagnosis based on the patient's spared reflexes, involves somatization disorder, Guillain-Lorenzo� syndrome (axonal type).
Much less likely to be due to GBS due to lumbar puncture results unremarkable
MRI of brain and cervical spine with and without contrast are unremarkable, essentially eliminating transverse myelitis or multiple sclerosis
Plan
Check EMG study of at least 2 limbs to determine if changes suggestive of neuromuscular blockade
Continue rehabilitation evaluations
Will follow pending results
Subjective/Objective
Subjective Data
Date of Service: October 17, 2024
Patient reports facial sensation change on the left and left arm of mild severity
Objective Data
Vital Signs
Temp Pulse Resp BP Pulse Ox
36.9 C 58 16 104/63 99
10/17/24 07:49 10/17/24 07:49 10/17/24 07:49 10/17/24 07:49 10/17/24 07:49
Lab Results
10/15/24 10:59
10/15/24 10:59
PT 14.5 Sec (11.4-14.6) 10/15/24 15:59
INR 1.08 10/15/24 15:59
Sodium 141 mmol/L (135-145) 10/15/24 10:59
Potassium 5.1 mmol/L (3.5-5.1) 10/15/24 10:59
BUN 24 mg/dl (9-20) H 10/15/24 10:59
Glucose 102 mg/dl (70-99) H 10/15/24 10:59
Calcium 9.7 mg/dl (8.4-10.2) 10/15/24 10:59
Vitamin B12 559 pg/ml (448-021) 10/15/24 10:59
Patient Allergies
No Known Allergies Allergy (Verified 10/15/24 08:54)
Review of Systems
-
History Source: Patient
All other systems: Reviewed and negative
Physical Exam
-
General: No Apparent Distress and Appears Stated Age
Eyes: Round OU, [place] Conjunctivae and No Ptosis
HEENT: Anicteric and Moist Mucous Membranes
Neck: Full Range of Motion
Respiratory: No Dyspnea
Cardiac: No JVD
GI: Non-distended
Skin: Unremarkable
Extremities: No Clubbing, No Cyanosis and No Edema
Psych: Intact Judgement/Insight
Extended Neurological Exam
Mood & Affect: Mood Unremarkable and Affect Unremarkable
Attention Span & Concentration: Awake, Alert and Interactive
Memory: Unremarkable
Tremor: Hand Tremor Absent and Head Tremor Absent
Involuntary Movement: None
Speech: Quality Unremarkable and Quantity Unremarkable
Cranial Nerve II: Left Eye: Pupillary Size Unremarkable and Visual Wells Grossly Intact
Cranial Nerve II: Right Eye: Pupillary Size Unremarkable and Visual Wells Grossly Intact
Cranial Nerves III, IV, : Extraocular Movement: Grossly Intact
Cranial Nerve VII: Facial Symmetry: Normal Facial Symmetry
Cranial Nerve VIII: Hearing: Unremarkable Hearing to Normal Conversational Volume
Cranial Nerve XI: Shoulder Shrug: Unremarkable
Muscle Strength, Overall: Spontaneously Moves (All extremities)
Muscle Bulk & Tone: Bulk Unremarkable and Tone Unremarkable
Data Reviewed
-
MRI Head: Report Reviewed
MRI Cervical Spine: Report Reviewed
EMG: Pending
Reviewed with: Physician and Patient
Old Records: Summarized
--- NOTE | 2024-10-17 11:08 | W.PN.HOSP.TC ---
Today's Communication/Plan
-
OK for DC today
Assessment / Plan
Assessment / Plan
#ascending peripheral neuropathy/trouble swallowing . concern for MS VS GBS VS transverse myelitis
-s/p LP which shows 0 WBC, nl protein - awaiting oligoclonal bands, VDRL
-TSH and B12 WNL
-syphyllis negative; HIV pending
-MRI and EMG readings normal
Brain MRI
IMPRESSION:
No acute intracranial abnormality noted.
Cervical Spine MRI
IMPRESSION:
Small to moderate protrusion at C5-6 with mild cord compression. Mild central canal narrowing. Mild right foraminal narrowing.
Tiny protrusion without significant central canal stenosis at C5-6.
Minor foraminal narrowing at C3-4.
No intrinsic cervical cord signal alteration or abnormal enhancement.
-outpatient follow up with neurology
-outpatient script for ST in case patient concerned about symptoms of dysphagia
# hxt of IBS
#BPH
-Gemtesa
#insomnia
-Benadryl and melatonin for sleep
#DVT prophylaxis
-Lovenox sq
#CODE status
-full code
Anticipated Discharge: Today
Subjective/Interval History
-
Date of Service: October 17, 2024
continues to have paresthesias - they move around, not consistent
swallowing normally
Objective Data
-
Vital Signs:
Vital Signs
Temp Pulse Resp BP Pulse Ox
98.4 F 58 16 104/63 99
10/17/24 07:49 10/17/24 07:49 10/17/24 07:49 10/17/24 07:49 10/17/24 07:49
I&O
10/16/24 10/17/24 10/18/24
06:59 06:59 06:59
Intake Total 960 / 960 1380 / 1380
Balance 960 / 960 1380 / 1380
Review of Systems
-
History Source: Patient
All other systems: Reviewed and negative
Physical Exam
-
General: No Apparent Distress
HEENT: PERRLA
Respiratory: Clear to Auscultation; Negative Wheezes
Cardiac: Regular Rhythm and S1/S2
GI: Soft and Nontender
Musculoskeletal: No Edema
Skin: Warm and Dry; Negative Rash
Neuro: AO x 3
Psych: Calm
Data Reviewed
-
Diagnostic Radiology: Report Reviewed by me
Labs: Labs Reviewed by me
--- NOTE | 2024-10-17 11:15 | W.DS.TRANS ---
DC Summary - Home Decorator
-
Discharge Instructions:
Discharge Diagnosis/Procedures parasthesias
Diet Regular
Activity As tolerated
Driving Restrictions As prior to admission
Bathing Restrictions None
Other Services ST
Instructions:
Stand-Alone Forms:
Changes to Home Medications: No
Discharge Medications:
DC Medications w/original date entered in [facility]
diphenhydramine HCl 25 mg tablet 25 mg PO HS Sleep 10/15/24
melatonin 10 mg tablet,extended release 10 mg PO HS Sleep 10/15/24
peppermint oil 1 cap PO DAILY Supplement 10/15/24
polyethylene glycol 3350 17 gram oral powder packet (Miralax) 17 g PO DAILY Constipation 10/15/24
psyllium husk 3.4 gram/5.4 gram oral powder (Metamucil) 1 tbsp PO DAILY Constipation 10/15/24
vibegron 75 mg tablet (Gemtesa) 75 mg PO HS Urinary Issue 10/15/24
Home Medication Changes
Pending Results: Yes
Additional Pending Results:
CSF studies - oligoclonal bands
--- NOTE | 2024-10-17 11:30 | NS.EMG ---
Electromyogram (EMG) Study
EMG/NCS Summary
NCS of the left upper limb, both lower limbs, and needle EMG of the left lower and left upper limb was performed.
Electrodiagnostic Impressions: Normal EMG/NCS.
Full dictated report and tabular data to follow.
--- NOTE | 2024-10-17 11:51 | CM ---
CM met with patient and in room. Patient was provided OBS letter. Patient and very upset that patient is under Observation and stated that she felt tricked into patient staying in the hospital. She felt that patient may not have
stayed if they were made aware that they were not being admitted. CM encourage patient's to contact her insurance to discuss financial obligations. CM referred patient to patient guest relations for any further complaints.
CM confirmed patient has a PCP. Patient denies history of DME, or VN. Patient has has outpatient pelvic floor therapy. Patient will be given a script for speech therapy should be feel his dysphagia symptoms.
PLAN: Home with outpatient speech.
--- NOTE | 2024-10-17 13:13 | PTOTSP ---
SPEECH THERAPY SWALLOW EVALUATION:
Patient exhibits grossly functional oropharyngeal swallow at this time. Patient reported history of transient dysphagia symptoms x2 this week which he described as 'strange, discombobulated'. Pt denied any signs/symptoms of aspiration or globus
sensation during transient dysphagia episodes, which lasted several minutes. Patient reported 100% resolution of symptoms at this time, endorsing normal swallow function at this time. MRI negative. EMG normal. Patient set for d/c today. Patient
appears cognitively intact with stable respiratory status. Recommend continue Regular texture solids, thin liquids. Medications whole with liquid as best tolerated. General aspiration precautions. Skilled ST services for swallow therapy are not
indicated at this time as symptoms have resolved. Pt expressed concern that symptoms may return. Discussed that given lack of neurological etiology at this time, suspect swallowing etiology could contain component related to anxiety. Discussed with
pt that should symptoms return, could consider Outpatient Videofluoroscopic Swallowing Study to further assess swallow physiology at that time. All questions answered.
RECOMMEND:
1) Regular texture diet, thin liquids
2) Medications whole with liquid as best tolerated
3) General aspiration precautions
4) No skilled ST services are indicated at this time; ST to sign off
5) Consider Outpatient VSE if symptoms return
[2024-10-17 13:43] VITALS: BP 114/81
--- NOTE | 2024-10-17 14:04 | W.DCSUMMARY ---
Discharge Summary
Discharge Data
Date of Admission: 10/15/24
Date of Discharge: 10/17/24
-
Pending Results: Yes
Additional Pending Results:
remaining CSF studies
Hospital Course
Discharging Physician : Dr. Rizwana Rosas
Disposition : Home
Primary care physician : Dr. Mariangel Smith
Principal Discharge diagnosis : Parasthesias
Hospital Course :
Mr. Gerson Fraire is a 49 yo man with hx BPH, nephrolithiasis, skin CA presents to the ER with bilateral ascending paresthesias and intermittent pain. He also reported intermittent difficulty swallowing. He was admitted to medicine with
Neurology consulting.
Work-up included vitamin B12, TSH WNL. LP with 0 WBC and normal protein. Brain MRI without acute abnormality. Cervical spine without intrinsic cervical cord alteration or abnormal enhancement. EMG normal.
Work-up thus far negative. Unclear diagnosis. He is OK for discharge with outpatient neurology follow up. Patient feels he is now swallowing normally but given script for outpatient ST if he becomes concerned. He also was given warning signs on
when to come back to the ER.
Time spent on discharge was 31 minutes.
Important imaging findings :
Brain MRI
IMPRESSION:
No acute intracranial abnormality noted.
Cervical Spine MRI 10/16/24
IMPRESSION:
Small to moderate protrusion at C5-6 with mild cord compression. Mild central canal narrowing. Mild right foraminal narrowing.
Tiny protrusion without significant central canal stenosis at C5-6.
Minor foraminal narrowing at C3-4.
No intrinsic cervical cord signal alteration or abnormal enhancement.
Procedure findings :
Discharge Plan
-
Patient Disposition: Home (Routine Discharge)
Discharge Diagnosis/Procedures: parasthesias
Diet: Regular
Activity: As tolerated
Driving Restrictions: As prior to admission
Bathing Restrictions: None
Other Services: ST
Referrals:
Israel Rodrigez MD [Active] - in two to three weeks
Mariangel Smith MD [Family Provider] - in less than 1 week
Prescriptions:
Continued
diphenhydramine HCl 25 mg Tablet
25 mg PO HS
melatonin 10 mg Tablet Extended Release
10 mg PO HS
Gemtesa 75 mg tablet
75 mg PO HS
polyethylene glycol 3350 [Miralax] 17 gram Powder In Packet
17 g PO DAILY
Metamucil 3.4 gram/5.4 gram Powder
1 tbsp PO DAILY
peppermint oil Capsule,Delayed Release(Dr/Ec)
1 cap PO DAILY
Discharge Orders:
Discharge Patient (As Directed); Ordered 10/17/24
Ordered By: Rizwana Rosas
Discharge Date and Time
Discharge Date/Time: 10/17/24 13:53
Print Language: JAPANESE
[2024-10-18 06:54] LABS: HIV-1 Quan NAAT Interpretation Not Detected (Not Detected); HIV-1 Quant NAAT (copies/ml) Not Detected cpy/mL; HIV-1 Quant NAAT (log copy/mL) Not Detected log cpy/mL
[2024-10-18 18:48] LABS: Myelin Basic Protein, CSF 3.42 ng/mL (0.00-5.50)
[2024-10-19 04:41] LABS: CSF VDRL (T. pallidum) Non Reactive (Non Reactive)
[2024-10-19 19:25] LABS: Albumin Index 7.6 ratio (0.0-9.0); Albumin, CSF 32 mg/dL (0-35); Albumin, Serum 4213 mg/dL (3500-5200); CSF IgG Synthesis Rate <0.0 mg/d (<=8.0); CSF IgG/Albumin Ratio 0.12 ratio (0.09-0.25); CSF Oligoclonal Bands Negative (Negative); CSF Oligoclonal Bands Number 0 Bands (0-1); IgG 1128 mg/dL (768-1632); IgG, CSF 3.9 mg/dL (0.0-6.0)
== END 2024-10-17 13:53 | disposition home or self-care (01) ==
LOC: 3 WEST ACU 12:52
PROVIDERS: Physician Assistant; Registered Nurse; ADMITTING PHYSICIAN Hospitalist; ATTENDING PHYSICIAN Student in an Organized Health Care Education/Training Program; CONSULT PHYSICIAN Psychiatry & Neurology Neurology; EMERGENCY PHYSICIAN Emergency Medicine; FAMILY PHYSICIAN Internal Medicine
DX: R20.0 Anesthesia of skin (principal); G62.9 Polyneuropathy, unspecified; R53.83 Other fatigue; M54.50 Low back pain, unspecified; N40.0 Benign prostatic hyperplasia without lower urinary tract symptoms; R13.10 Dysphagia, unspecified; K58.9 Irritable bowel syndrome, unspecified; F17.200 Nicotine dependence, unspecified, uncomplicated; G47.00 Insomnia, unspecified; G47.33 Obstructive sleep apnea (adult) (pediatric); M50.022 Cervical disc disorder at C5-C6 level with myelopathy; M48.02 Spinal stenosis, cervical region; Z86.16 Personal history of COVID-19; Z85.828 Personal history of other malignant neoplasm of skin; Z87.442 Personal history of urinary calculi; Z86.0100 Personal history of colon polyps, unspecified
CPT/HCPCS: 62328; 70553; 72156; 80053; 82040; 82042; 82607; 82746; 82784; 82945; 83735; 83873; 83916; 84157; 84443; 85025; 85610; 85652; 86140; 86592; 86780; 87015; 87070; 87205; 87536; 88108; 89051; 92610; 95886; 95910; 97161; 99285; A9575; G0378

== ENCOUNTER → 2025-01-04 18:35 | Outpatient (REF) | payer OTHER, SELFPAY | LOC: MRI 3T 18:35 | PROVIDERS: ATTENDING PHYSICIAN Specialist; FAMILY PHYSICIAN Internal Medicine | DX: G95.9 Disease of spinal cord, unspecified (principal) | CPT/HCPCS: 72157; A9575 ==

== ENCOUNTER → 2025-03-06 12:55 | Outpatient (REF) | payer OTHER, SELFPAY | LOC: MRI 3T 12:55 | PROVIDERS: ATTENDING PHYSICIAN Specialist; FAMILY PHYSICIAN Internal Medicine | DX: M62.81 Muscle weakness (generalized) (principal) | CPT/HCPCS: 72148 ==

== ENCOUNTER → 2025-07-30 12:48 | Outpatient (REF) | payer OTHER, SELFPAY | LOC: PAVMRI 12:48 | PROVIDERS: ATTENDING PHYSICIAN Nurse Practitioner; FAMILY PHYSICIAN Internal Medicine | DX: R93.5 Abnormal findings on diagnostic imaging of other abdominal regions, including retroperitoneum (principal) | CPT/HCPCS: 72197; 74183; A9575 ==

== ENCOUNTER → 2025-09-09 07:36 | Outpatient (REF) | payer OTHER, SELFPAY ==
--- NOTE | 2025-09-10 11:29 | EEG.RPT ---
Electroencephalogram Report
Recording
Date of EE09/09/25
Type of EEG: Routine
Length of EEG recordin minutes
Done with Video Recording: Yes
Patient Status: Outpatient
Recording Conditions: Awake and Drowsy
Hyperventilation Performed: Yes
Photic Stimulation Performed: Yes
Report
LESS THAN 1 HOUR EEG INTERPRETATION:
Unremarkable EEG for age
CLINICAL CORRELATION:
A normal EEG does not rule out a diagnosis of epilepsy. If clinical suspicion for seizure persists, a prolonged recording may be warranted.
Clinical correlation is advised.
METHODS:
A 21 channel digitized electroencephalogram (EEG) was performed using the 10/20 international system of electrode placement and one-lead of ECG recorded. The [employer]okee quantitative EEG system was utilized.
ELECTROENCEPHALOGRAPHER IMPRESSION(S):
Quality of study
Good
Background
There was an unremarkable anterior-posterior voltage gradient of alpha frequency.
With eye opening the background activity changed to a low voltage mixture of frequencies.
There were no significant asymmetries of background activity noted.
Sleep
Drowsiness present
Hyperventilation
No activation
Photic Stimulation
No activation
ECG
Normal sinus rhythm
== END ==
LOC: EEG 07:36
PROVIDERS: ATTENDING PHYSICIAN Psychiatry & Neurology Neurology; FAMILY PHYSICIAN Internal Medicine
DX: R41.3 Other amnesia (principal)
CPT/HCPCS: 95816

== ENCOUNTER 2025-10-28 16:49 | Emergency (ER) | payer OTHER, SELFPAY ==
[2025-10-28 16:52] VITALS: BP 136/79
--- NOTE | 2025-10-28 17:00 | ED.GENMED ---
History of Present Illness
General
Chief Complaint: BURN-MINOR
Source: patient
Time Seen by Provider: 10/28/25 16:57
History of Present Illness
History of Present Illness:
50-year-old male presenting to the emergency department for evaluation after he accidentally sustained a burn to the palmar surface of his right hand while picking up a perrin out of the oven. No other injuries were sustained, unknown last tetanus.
Patient is right-hand dominant. Patient did not take anything for pain prior to arrival but did apply ice immediately to his hand.
Past History
Past History
ED Past Medical History: Cancer (Skin cancer) and Other (BPH, kidney stones, COVID-19)
ED Past Surgical History: Appendectomy and Other (Laser lithotripsy)
Social History
Tobacco: Non-smoker
Alcohol: Daily (Has not had a drink in 1 month but does note drinking 1-2 alcoholic beverages daily)
Drug: None
Personal:
Living: with family
Review of Systems
Review of Systems
All Other Systems: ROS reviewed and negative except as documented in HPI and ROS
Phy Exam
Physical Exam
Physical Exam:
GENERAL: Alert , in no apparent distress
EYE: conjunctiva clear
Head: Normocephalic atraumatic
NECK: Supple,
ENT: mmm.
LUNGS: no acute respiratory distress
NEUROLOGICAL: Alert and oriented
SKIN: Warm and dry, second-degree burn with blister formation over the thenar eminence of the right hand with the blister measuring approximately 2 cm in size. Mild surrounding erythema, there is slight erythema on the remainder of the hand but
this is from the patient submerging his hand into ice. Intact and equal sensation on all digits
MUSCULOSKELETAL: well perfused.
PSYCH: Normal and appropriate interaction.
Scores
Heart Failure Risk
Heart Failure Risk Score: Not Applicable
Heart Score for Chest Pain Patients
STEMI patient?: Not applicable
Withdrawal Assessment of Alcohol
Withdrawal Assessment Completed?: Not applicable
Course
Orders/Labs/Results
Orders:
Orders
10/28/25 17:00
Ibuprofen [Motrin] 800 mg PO NOW STA
Oxycodone/Acetaminophen [Percocet 5/325] 1 tablet PO NOW STA
Tetanus/Diphth/Acelpertussis [Adacel] 0.5 ml IM .ONCE ONE
Vital Signs
Initial and Last Documented VS:
Initial Vital Signs
Temp Pulse Resp BP Pulse Ox
98.4 F 75 18 136/79 99
10/28/25 16:52 10/28/25 16:52 10/28/25 16:52 10/28/25 16:52 10/28/25 16:52
Last Documented Vital Signs
Temp Pulse Resp BP Pulse Ox
98.4 F 75 18 136/79 99
10/28/25 16:52 10/28/25 16:52 10/28/25 16:52 10/28/25 16:52 10/28/25 16:52
MDM/Problems Addressed
Differential Diagnosis Includes:
Second-degree burn
At this time no concern for infection
MDM/Problems Addressed:
50-year-old male presenting to the ER for evaluation of a burn sustained to the thenar eminence of his right hand. No other injuries were sustained. Total body surface area of the burn measures less than 1%. It does not cross the joint. Patient
is neurovascularly intact. Will update patient's tetanus. Pain control with a dose of Percocet here as well as 800 mg of Motrin. Continue high-dose anti-inflammatories at home as well as dressing changes daily. Patient advised on wound care.
Stable for discharge.
*Pulse Oximetry
SaO2: 99
Oxygen Mode of Delivery: Room air
Patient hypoxic: no
*Critical Care Note
Total Time (30-74mins, 75-104mins- exclusive of procedures): Not Applicable
ED Attending Note
-
Portions of this chart may have been created with voice recognition software.� Occasional wrong word or��sound alike� substitutions may have occurred due to the inherent limitations of voice recognition software.
Discharge Plan
Departure
Patient Disposition: Home (Routine Discharge)
Date of Disposition: 10/28/25
Time of Disposition: 17:00
Patient with high blood pressure during this ER visit?: No
Discharge Problem:
Second degree burn of right hand
Instructions: Skin Nelson (DC)
Prescriptions:
No Action
diphenhydramine HCl 25 mg Tablet
25 mg PO HS
melatonin 10 mg Tablet Extended Release
10 mg PO HS
Gemtesa 75 mg tablet
75 mg PO HS
polyethylene glycol 3350 [Miralax] 17 gram Powder In Packet
17 g PO DAILY
Metamucil 3.4 gram/5.4 gram Powder
1 tbsp PO DAILY
peppermint oil Capsule,Delayed Release(Dr/Ec)
1 cap PO DAILY
Interventions
Interventions:
*Risk Screen - Suicide Last Done: 10/28/25 16:52
*Neglect/Abuse Screening Last Done: 10/28/25 16:52
Discharge Date and Time
Print Language: FRISIAN
[2025-10-28] MEDS: PERCOCET 5/325 1 TABLET PO (17:12)
[2025-10-28] MEDS: MOTRIN 800 MG PO (17:12)
[2025-10-28] MEDS: ADACEL 0.5 ML IM (17:13)
== END 2025-10-28 17:39 | disposition home or self-care (01) ==
LOC: EMR 16:49
PROVIDERS: EMERGENCY PHYSICIAN Emergency Medicine; FAMILY PHYSICIAN Internal Medicine
DX: T23.201A Burn of second degree of right hand, unspecified site, initial encounter (principal); T31.0 Burns involving less than 10% of body surface; X08.8XXA Exposure to other specified smoke, fire and flames, initial encounter; Z23 Encounter for immunization; Z85.828 Personal history of other malignant neoplasm of skin; Z86.16 Personal history of COVID-19; Z87.442 Personal history of urinary calculi; Z90.49 Acquired absence of other specified parts of digestive tract; N40.0 Benign prostatic hyperplasia without lower urinary tract symptoms
CPT/HCPCS: 99282; 90471; 90715